=== PATIENT | male | born 1950 | race African-American/Black ===

== ENCOUNTER → 2017-03-12 | Outpatient (CLI) | payer OTHER ==
[2016-07-20 15:18] VITALS: BP 133/71
[~2017-03-12] MED LIST: ATOR20TA PO; ATOR40TA PO; HYDR-971 PO; LEFL20TA PO; METO100T11 PO; METO25TA2 PO; TAMS0.4C97 PO; WARF3TAB54 PO; WARF5TAB7 PO
[2017-03-14 07:14] LABS: HEP B SURFACE ABDY Non Reactive (.)
== END | disposition home or self-care (01) ==
LOC: LAB 14:13
PROVIDERS: ATTEND Internal Medicine Rheumatology
DX: M05.70 Rheumatoid arthritis with rheumatoid factor of unspecified site without organ or systems involvement (principal)
CPT/HCPCS: 36415; 86481; 86705; 86706; 87340

== ENCOUNTER 2017-04-04 13:01 | Emergency (ER) | payer OTHER ==
[~2017-04-04] VITALS: Ht 182.9 cm; Wt 117.9 kg
[2017-04-04 13:36] VITALS: BP 125/62
--- NOTE | 2017-04-04 13:42 | PHYS DOC ---
General Chief Complaint: EYE PROBLEMS Stated Complaint: EYE PROBLEMS Time Seen by MD: 13:31 Source: patient Exam Limitations: no limitations Problems: History of Present Illness Initial Comments Patient is a 66-year-old male who comes to the ED complaining of pink eye. Patient states that for the past several days he's had nonspecific nasal congestion and drainage. Last evening he noticed his right eye was red and itchy and he began to scratch it. This morning he awoke with his right eye matted shut with yellow green discharge. He says his vision is slightly blurry and is I keeps draining he denies trauma he does not work contacts he has no eye pain or vision impairment and denies foreign body sensation. No pre-arrival treatment patient is normally healthy Timing/Duration: yesterday Severity: moderate Location: eye (R) Prearrival Treatment: no prearrival treatment Modifying Factors: improves with other Associated Symptoms: nasal congestion/drainage, other Allergies: Coded Allergies: Penicillins (Unverified Allergy, Unknown, 04/14/15) levofloxacin (Unverified Allergy, Unknown, 04/14/15) Past Medical History Medical History: hypertension (hyperlipidemia) Surgical History: noncontributory, other Social History Smoker: non-smoker Alcohol: none Drugs: none Constitutional: denies chills, denies fever, denies malaise Eyes: see HPI Ears: denies dizziness, denies pain, denies tinnitus Nose: congestion, denies epistaxis, denies pain Throat: denies pain, denies swelling, denies neck stiffness Respiratory: cough, denies shortness of breath, denies wheezing Cardiovascular: denies chest pain, denies palpitations, denies syncope Gastrointestinal: denies abdominal pain, denies nausea, denies vomiting Neurological: denies headache, denies numbness, denies paresthesia Physical Exam General Appearance: WD/WN, no apparent distress Eyes: right eye other (right eye injected with yellow discharge), left eye normal inspection, bilateral eye PERRL, bilateral eye EOMI Nose: normal inspection Mouth/Throat: normal mouth inspection, pharynx normal Neck: non-tender, supple Cardiovascular/Respiratory: normal peripheral pulses, normal breath sounds, no respiratory distress 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 Prescription: Polytrim ophthalmic drops. Follow-up with your doctor next week for recheck. Return to the ED with new or changing symptoms LEONELA RUFFIN DO Apr 04, 2017 13:42
== END 2017-04-04 13:50 | disposition home or self-care (01) ==
LOC: ER 13:01
DX: H10.9 Unspecified conjunctivitis (principal); E78.5 Hyperlipidemia, unspecified; I10 Essential (primary) hypertension; Z88.0 Allergy status to penicillin; Z88.1 Allergy status to other antibiotic agents
CPT/HCPCS: 99283

== ENCOUNTER → 2018-03-25 | Outpatient (CLI) | payer OTHER ==
[~2018-03-25] MED LIST changes: +METO-247 PO; -METO100T11 PO; +WARF-31 PO; -WARF5TAB7 PO
[2018-03-25 08:37] LABS: ALBUMIN 3.3 g/dL (3.4-5.0); ALBUMIN/GLOBULIN RATIO 0.9 (1.0-1.7); CREATININE 1.4 mg/dL (0.7-1.3); GFR 61.4; POTASSIUM 4.3 mmol/L (3.5-5.1); TOTAL BILIRUBIN 0.4 mg/dL (0.2-1.0); TOTAL PROTEIN 6.9 g/dL (6.4-8.2)
== END | disposition home or self-care (01) ==
LOC: LAB 07:59
PROVIDERS: ATTEND Internal Medicine Interventional Cardiology
DX: I10 Essential (primary) hypertension (principal); E78.5 Hyperlipidemia, unspecified
CPT/HCPCS: 36415; 80053; 80061

== ENCOUNTER 2018-08-08 03:37 | Emergency (ER) | payer OTHER ==
[~2018-08-08] VITALS: Ht 182.9 cm; Wt 112.5 kg
[2018-08-08] MEDS ORDERED: MORPHINE SULFATE 4 MG/ML DISP.SYRIN. ONE (04:06)
[2018-08-08] MEDS ORDERED: ONDANSETRON PF 4 MG/2 ML VIAL. ONE (04:06)
[2018-08-08] MEDS ORDERED: IV NORMAL SALINE 1,000ML 1,000 ML IV SCH (04:08)
--- NOTE | 2018-08-08 04:12 | PHYS DOC ---
IGNACIO MAURER MD 08/08/18 0412: Adult General Chief Complaint Chief Complaint abd pain HPI HPI 67 years old gentleman presented emergency department with right sided abdominal pain described as a sharp constant pain associated with nausea no vomiting no urgency no frequency no hematuria. Pain is constant Review of Systems Review of Systems Constitutional: Denies fever or chills [] Eyes: Denies change in visual acuity, redness, or eye pain [] HENT: Denies nasal congestion or sore throat [] Respiratory: Denies cough or shortness of breath [] Cardiovascular: No additional information not addressed in HPI [] GI: Denies vomiting, bloody stools or diarrhea [] : Denies dysuria or hematuria [] Musculoskeletal: Denies back pain or joint pain [] Integument: Denies rash or skin lesions [] Neurologic: Denies headache, focal weakness or sensory changes [] Endocrine: Denies polyuria or polydipsia [] All other systems were reviewed and found to be within normal limits, except as documented in this note. Current Medications Current Medications Current Medications Medications (Trade) Dose Ordered Sig/Concetta Start Time Stop Time Status Last Admin Dose Admin Info (Do NOT chart on this entry -- for MONITORING) 1 each PRN DAILY PRN 08/08/18 04:15 08/10/18 04:14 Iohexol (Omnipaque 300 Mg/ml) 75 ml 1X ONCE 08/08/18 04:30 08/08/18 04:31 DC 08/08/18 04:54 75 ML Morphine Sulfate (Morphine 4mg Syringe) 4 mg PRN Q15MIN PRN 08/08/18 04:15 08/09/18 04:14 Ondansetron HCl (Zofran) 4 mg 1X ONCE 08/08/18 04:15 08/08/18 04:17 DC Sodium Chloride 1,000 ml @ 1,000 mls/hr Q1H 08/08/18 04:08 08/08/18 05:07 DC 08/08/18 04:14 1,000 MLS/HR Allergies Allergies Allergies Coded Allergies Type Severity Reaction Last Updated Verified Penicillins Allergy Unknown 08/08/18 No levofloxacin Allergy Unknown 04/14/15 No Physical Exam Physical Exam Constitutional: Well developed, well nourished, no acute distress, non-toxic appearance. [] HENT: Normocephalic, atraumatic, bilateral external ears normal, oropharynx moist, no oral exudates, nose normal. [] Eyes: PERRLA, EOMI, conjunctiva normal, no discharge. [] Neck: Normal range of motion, no tenderness, supple, no stridor. [] Cardiovascular:Heart rate regular rhythm, no murmur [] Lungs & Thorax: Bilateral breath sounds clear to auscultation [] Abdomen: Bowel sounds normal, soft, , no masses, no pulsatile masses. [] Skin: Warm, dry, no erythema, no rash. [] Back: No tenderness, no CVA tenderness. [] Extremities: No tenderness, no cyanosis, no clubbing, ROM intact, no edema. [] Neurologic: Alert and oriented X 3, normal motor function, normal sensory function, no focal deficits noted. [] Psychologic: Affect normal, judgement normal, mood normal. [] Current Patient Data Vital Signs Vital Signs Date Time Temp Pulse Resp B/P (MAP) Pulse Ox O2 Delivery O2 Flow Rate FiO2 08/08/18 04:17 84 22 131/77 (95) 99 Room Air 08/08/18 03:43 97.7 Lab Results Laboratory Tests Test 08/08/18 03:44 08/08/18 05:07 White Blood Count 11.0 x10^3/uL (4.0-11.0) Red Blood Count 4.42 x10^6/uL (4.30-5.70) Hemoglobin 11.7 g/dL (13.0-17.5) L Hematocrit 34.9 % (39.0-53.0) L Mean Corpuscular Volume 79 fL (79-100) Mean Corpuscular Hemoglobin 27 pg (25-35) Mean Corpuscular Hemoglobin Concent 34 g/dL (31-37) Red Cell Distribution Width 16.1 % (11.5-14.5) H Platelet Count 238 x10^3/uL (140-400) Neutrophils (%) (Auto) 58 % (31-73) Lymphocytes (%) (Auto) 30 % (24-48) Monocytes (%) (Auto) 10 % (0-9) H Eosinophils (%) (Auto) 2 % (0-3) Basophils (%) (Auto) 0 % (0-3) Neutrophils # (Auto) 6.4 x10^3uL (1.8-7.7) Lymphocytes # (Auto) 3.3 x10^3/uL (1.0-4.8) Monocytes # (Auto) 1.1 x10^3/uL (0.0-1.1) Eosinophils # (Auto) 0.2 x10^3/uL (0.0-0.7) Basophils # (Auto) 0.0 x10^3/uL (0.0-0.2) Sodium Level 138 mmol/L (136-145) Potassium Level 3.8 mmol/L (3.5-5.1) Chloride Level 103 mmol/L (98-107) Carbon Dioxide Level 23 mmol/L (21-32) Anion Gap 12 (6-14) Blood Urea Nitrogen 14 mg/dL (8-26) Creatinine 1.3 mg/dL (0.7-1.3) Estimated GFR (Cockcroft-Gault) 66.8 BUN/Creatinine Ratio 11 (6-20) Glucose Level 133 mg/dL (70-99) H Calcium Level 8.1 mg/dL (8.5-10.1) L Total Bilirubin 0.5 mg/dL (0.2-1.0) Aspartate Amino Transferase (AST) 72 U/L (15-37) H Alanine Aminotransferase (ALT) 112 U/L (16-63) H Alkaline Phosphatase 167 U/L (46-116) H Troponin I Quantitative < 0.017 ng/mL (0-0.055) Total Protein 7.2 g/dL (6.4-8.2) Albumin 2.7 g/dL (3.4-5.0) L Albumin/Globulin Ratio 0.6 (1.0-1.7) L Lipase 60 U/L (73-393) L Urine Collection Type Unknown Urine Color Yellow Urine Clarity Clear Urine pH 5.0 Urine Specific Braddock 1.020 Urine Protein 30 mg/dl (NEG-TRACE) Urine Glucose (UA) Neg mg/dL (NEG) Urine Ketones (Stick) Neg mg/dL (NEG) Urine Blood Neg (NEG) Urine Nitrite Neg (NEG) Urine Bilirubin Neg (NEG) Urine Urobilinogen Dipstick 0.2 mg/dL (0.2 mg/dL) Urine Leukocyte Esterase Neg (NEG) Urine RBC 0 /HPF (0-2) Urine WBC Rare /HPF (0-4) Urine Squamous Epithelial Cells Occ /LPF Urine Bacteria 0 /HPF (0-FEW) EKG EKG [] Radiology/Procedures Radiology/Procedures [] Course & Med Decision Making Course & Med Decision Making Pertinent Labs and Imaging studies reviewed. (See chart for details) [] Final Impression Final Impression [] Problems: (1) Abdominal pain Qualifiers: Qualified Codes: R10.31 - Right lower quadrant pain Dragon Disclaimer Dragon Disclaimer This electronic medical record was generated, in whole or in part, using a voice recognition dictation system. MIGUEL AVILES 08/08/18 0610: Adult General Radiology/Procedures Impressions: CT abdomen and pelvis with contrast: Reason for examination: Upper abdominal pain with nausea, vomiting and constipation. Aneurysm/stent placement one week ago at . Comparison is made to previous CT chest dated 09/20/2015 and previous chest, abdomen and pelvis CT dated 04/14/2015. Helical images were obtained through the abdomen pelvis with intravenous administration of 75 cc Omnipaque 300. Reconstruction was performed in sagittal and coronal plane. Exposure: One or more of the following individualized dose reduction techniques were utilized for this examination: 1. Automated exposure control 2. Adjustment of the mA and/or kV according to patient size 3. Use of iterative reconstruction technique. There is some dependent atelectasis at the lung bases. The heart size is normal with no pericardial effusion seen. No focal abnormality seen at the liver, gallbladder, spleen, adrenal glands or pancreas. No abnormality seen at the inferior vena cava. The abdominal aorta shows evidence of an aortic dissection with a stent present above the level of the celiac axis the dissection extends to the aortic bifurcation. There is aneurysmal dilatation of the dissected aorta which is tortuous but appears to measure at least 6.5 cm in greatest diameter at the level of the aortic hiatus. This is larger than on previous exam. There appears to be thrombus in the false lumen at the level of the aortic stent. Distal to the stent, there appears be blood flow in both the true and false lumen. No abnormality is seen at the stomach or small intestinal tract. There is diverticulosis in the sigmoid colon but no evidence of diverticulitis. No abnormality seen at the appendix. The kidneys show no renal masses, renal calculi, hydronephrosis or evidence of obstructive uropathy. No abnormality seen at the bladder, prostate gland or seminal vesicles. IMPRESSION: Aortic aneurysm or dissection which appears to be greater diameter than on previous examination at the level of the aortic hiatus measuring 6.5 cm in greatest diameter. Aortic stent is present in the abdominal aorta proximal to the celiac axis. There is thrombus in the false lumen at the level of the aortic stent. There is flow in both the true and false lumens below the level of the stent and the dissection extends down to the bifurcation. No other focal abnormality seen in the abdomen or pelvis. Electronically signed by: Love Canas MD (08/08/2018 5:54 AM) [facility] DICTATED AND SIGNED BY: LOVE CANAS MD DATE: 08/08/18 0537 CC: IGNACIO MARUER MD; AIDE PORTILLO MD Course & Med Decision Making Course & Med Decision Making The patient has an aortic dissection as well as his aneurysm. He recently had an aortic stent placed. I am unsure if these dissection findings are new or if this was existing prior to his stent. It could represent cause of his pain. There is no abnormality found in the right upper quadrant related to the gallbladder and liver. His liver enzymes are elevated but only about 2x normal. I discussed the patient's case with his vascular surgeon Dr. Stephane Ribera at [facility]. He informed me that the aneurysm was not a new finding. He will personally review the scan and contact the patient for further follow-up. He is comfortable at this time with discharging the patient if he has no other reasons for admission. The patient's liver and gallbladder on CT were unremarkable. He does have some stool retention in this right upper quadrant. The surgeon told me they had difficulty with the patient having constipation while he was at their facility. I will encourage the patient to consider more aggressive bowel regimen for the next day or 2 and then close monitoring of his constipation in the future. I reviewed this plan with the patient and he does feel comfortable going home. He will follow-up with his surgeon and PCP as needed. He is stable for discharge at this time. IGNACIO MAURER MD Aug 08, 2018 04:12 MIGUEL AVILES DO Aug 08, 2018 06:10
[2018-08-08] MEDS ORDERED: CONTRAST GIVEN MC PRN (04:15)
[2018-08-08] MEDS ORDERED: MORPHINE SULFATE 4 MG/ML DISP.SYRIN. IV ONE (04:15)
[2018-08-08] MEDS ORDERED: MORPHINE SULFATE 4 MG/ML DISP.SYRIN. IV/SQ PRN (04:15)
[2018-08-08] MEDS ORDERED: ONDANSETRON PF 4 MG/2 ML VIAL. IV ONE ×2 (04:15)
[2018-08-08 04:30] LABS: BASO % 0 % (0-3); EOS # 0.2 x10^3/uL (0.0-0.7); EOS % 2 % (0-3); HEMATOCRIT 34.9 % (39.0-53.0); HEMOGLOBIN 11.7 g/dL (13.0-17.5); LYMPH # 3.3 x10^3/uL (1.0-4.8); LYMPH % 30 % (24-48); MEAN CORPUSCULAR HEMOGLOBIN 27 pg (25-35); MEAN CORPUSCULAR HGB CONC 34 g/dL (31-37); MEAN CORPUSCULAR VOLUME 79 fL (79-100); MONO # 1.1 x10^3/uL (0.0-1.1); MONO % 10 % (0-9); NEUT # 6.4 x10^3uL (1.8-7.7); NEUT % 58 % (31-73); PLATELET COUNT 238 x10^3/uL (140-400); RED BLOOD COUNT 4.42 x10^6/uL (4.30-5.70); RED CELL DISTRIBUTION WIDTH 16.1 % (11.5-14.5)
[2018-08-08] MEDS ORDERED: IOHEXOL 300 MG/ML 75 ML VIAL. IV ONE (04:30)
[2018-08-08 04:44] LABS: ALBUMIN 2.7 g/dL (3.4-5.0); ALBUMIN/GLOBULIN RATIO 0.6 (1.0-1.7); CALCIUM 8.1 mg/dL (8.5-10.1); CREATININE 1.3 mg/dL (0.7-1.3); GFR 66.8; POTASSIUM 3.8 mmol/L (3.5-5.1); TOTAL BILIRUBIN 0.5 mg/dL (0.2-1.0); TOTAL PROTEIN 7.2 g/dL (6.4-8.2)
[2018-08-08 05:50] LABS: BACTERIA,URINE 0 /HPF (0-FEW); BILIRUBIN,URINE NEG (NEG); CLARITY,URINE CLEAR; COLOR,URINE YELLOW; GLUCOSE,URINE NEG (NEG); NITRITE,URINE NEG (NEG); RBC,URINE 0 /HPF (0-2); SQUAMOUS EPITHELIAL CELL,UR OCC /LPF; UROBILINOGEN,URINE 0.2 mg/dL (0.2 mg/dL); WBC,URINE RARE /HPF (0-4)
--- NOTE | 2018-08-08 05:58 | RAD ---
CT abdomen and pelvis with contrast: Reason for examination: Upper abdominal pain with nausea, vomiting and constipation. Aneurysm/stent placement one week ago at . Comparison is made to previous CT chest dated 09/20/2015 and previous chest, abdomen and pelvis CT dated 04/14/2015. Helical images were obtained through the abdomen pelvis with intravenous administration of 75 cc Omnipaque 300. Reconstruction was performed in sagittal and coronal plane. Exposure: One or more of the following individualized dose reduction techniques were utilized for this examination: 1. Automated exposure control 2. Adjustment of the mA and/or kV according to patient size 3. Use of iterative reconstruction technique. There is some dependent atelectasis at the lung bases. The heart size is normal with no pericardial effusion seen. No focal abnormality seen at the liver, gallbladder, spleen, adrenal glands or pancreas. No abnormality seen at the inferior vena cava. The abdominal aorta shows evidence of an aortic dissection with a stent present above the level of the celiac axis the dissection extends to the aortic bifurcation. There is aneurysmal dilatation of the dissected aorta which is tortuous but appears to measure at least 6.5 cm in greatest diameter at the level of the aortic hiatus. This is larger than on previous exam. There appears to be thrombus in the false lumen at the level of the aortic stent. Distal to the stent, there appears be blood flow in both the true and false lumen. No abnormality is seen at the stomach or small intestinal tract. There is diverticulosis in the sigmoid colon but no evidence of diverticulitis. No abnormality seen at the appendix. The kidneys show no renal masses, renal calculi, hydronephrosis or evidence of obstructive uropathy. No abnormality seen at the bladder, prostate gland or seminal vesicles. IMPRESSION: Aortic aneurysm or dissection which appears to be greater diameter than on previous examination at the level of the aortic hiatus measuring 6.5 cm in greatest diameter. Aortic stent is present in the abdominal aorta proximal to the celiac axis. There is thrombus in the false lumen at the level of the aortic stent. There is flow in both the true and false lumens below the level of the stent and the dissection extends down to the bifurcation. No other focal abnormality seen in the abdomen or pelvis. Electronically signed by: Love Lemus MD (08/08/2018 5:54 AM) [facility]
--- NOTE | 2018-08-08 06:00 | EKG ---
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
[2018-08-08 07:12] VITALS: BP 116/64
== END 2018-08-08 07:40 | disposition home or self-care (01) ==
LOC: ER 03:37
DX: I71.4 Abdominal aortic aneurysm, without rupture (principal); I71.02 Dissection of abdominal aorta; K59.00 Constipation, unspecified; R11.2 Nausea with vomiting, unspecified; Z88.0 Allergy status to penicillin; Z88.1 Allergy status to other antibiotic agents
CPT/HCPCS: 36415; 74177; 80053; 81001; 83690; 84484; 85025; 93005; 96361; 96374; 96375; 99285; J2270; J2405; Q9967; J7030

== ENCOUNTER → 2018-08-21 | Outpatient (CLI) | payer OTHER ==
[2018-08-08 07:12] VITALS: BP 116/64
--- NOTE | 2018-08-21 18:11 | RAD ---
KUB, 08/21/2018: HISTORY: Left upper quadrant pain The abdominal gas pattern is unremarkable. There is no evidence of organomegaly. The lower end of an aortic stent is evident in the upper abdomen. Mild degenerative changes are present in the spine and at both hips. IMPRESSION: No acute abdominal abnormality is detected. Electronically signed by: Jameel Lacey MD (08/21/2018 6:08 PM) [facility]
== END | disposition home or self-care (01) ==
LOC: LAB 13:10
DX: R10.12 Left upper quadrant pain (principal); R19.7 Diarrhea, unspecified; R74.8 Abnormal levels of other serum enzymes; I71.6 Thoracoabdominal aortic aneurysm, without rupture; M47.896 Other spondylosis, lumbar region; M16.0 Bilateral primary osteoarthritis of hip
CPT/HCPCS: 74018; 82728; 83540; 83550

== ENCOUNTER → 2019-02-05 | Outpatient (CLI) | payer OTHER ==
[~2019-02-05] MED LIST changes: +HYDR-3165 PO; -HYDR-971 PO
== END | disposition home or self-care (01) ==
LOC: LAB 14:35
PROVIDERS: ATTEND Family Medicine
DX: Z79.01 Long term (current) use of anticoagulants (principal)
CPT/HCPCS: 36415; 85610

== ENCOUNTER → 2019-02-05 | Outpatient (CLI) | payer OTHER ==
[2019-02-05 15:20] LABS: BASO % 0 % (0-3); EOS # 0.1 x10^3/uL (0.0-0.7); EOS % 1 % (0-3); HEMATOCRIT 40.7 % (39.0-53.0); HEMOGLOBIN 13.3 g/dL (13.0-17.5); LYMPH # 3.2 x10^3/uL (1.0-4.8); LYMPH % 36 % (24-48); MEAN CORPUSCULAR HEMOGLOBIN 25 pg (25-35); MEAN CORPUSCULAR HGB CONC 33 g/dL (31-37); MEAN CORPUSCULAR VOLUME 77 fL (79-100); MONO # 0.7 x10^3/uL (0.0-1.1); MONO % 8 % (0-9); NEUT # 4.9 x10^3uL (1.8-7.7); NEUT % 55 % (31-73); PLATELET COUNT 161 x10^3/uL (140-400); RED BLOOD COUNT 5.29 x10^6/uL (4.30-5.70); RED CELL DISTRIBUTION WIDTH 20.1 % (11.5-14.5); WHITE BLOOD COUNT 8.9 x10^3/uL (4.0-11.0)
[2019-02-05 15:29] LABS: ALBUMIN 3.5 g/dL (3.4-5.0); ALBUMIN/GLOBULIN RATIO 0.8 (1.0-1.7); CALCIUM 8.9 mg/dL (8.5-10.1); CREATININE 1.1 mg/dL (0.7-1.3); GFR 80.8; POTASSIUM 4.3 mmol/L (3.5-5.1); TOTAL BILIRUBIN 0.3 mg/dL (0.2-1.0); TOTAL PROTEIN 8.1 g/dL (6.4-8.2)
[2019-02-05 15:35] LABS: PLT ESTIMATE ADEQUATE (ADEQUATE)
[2019-02-05 15:37] LABS: ANISOCYTOSIS MOD; BIZZARE CELLS FEW; SCHISTOCYTES FEW; TEAR DROP CELLS FEW
[2019-02-05 15:38] LABS: OVALOCYTES FEW; POIKILOCYTOSIS MOD
== END | disposition home or self-care (01) ==
LOC: LAB 14:43
PROVIDERS: ATTEND Internal Medicine Rheumatology
DX: M05.79 Rheumatoid arthritis with rheumatoid factor of multiple sites without organ or systems involvement (principal); M15.9 Polyosteoarthritis, unspecified
CPT/HCPCS: 36415; 80053; 85025

== ENCOUNTER → 2019-08-08 | Outpatient (CLI) | payer OTHER ==
[2019-08-08 12:50] LABS: BASO % 0 % (0-3); EOS # 0.1 x10^3/uL (0.0-0.7); EOS % 1 % (0-3); HEMATOCRIT 43.7 % (39.0-53.0); HEMOGLOBIN 14.1 g/dL (13.0-17.5); LYMPH # 2.5 x10^3/uL (1.0-4.8); LYMPH % 29 % (24-48); MEAN CORPUSCULAR HEMOGLOBIN 26 pg (25-35); MEAN CORPUSCULAR HGB CONC 32 g/dL (31-37); MEAN CORPUSCULAR VOLUME 82 fL (79-100); MONO # 0.7 x10^3/uL (0.0-1.1); MONO % 8 % (0-9); NEUT # 5.3 x10^3uL (1.8-7.7); NEUT % 61 % (31-73); PLATELET COUNT 132 x10^3/uL (140-400); RED BLOOD COUNT 5.33 x10^6/uL (4.30-5.70); RED CELL DISTRIBUTION WIDTH 17.6 % (11.5-14.5); WHITE BLOOD COUNT 8.7 x10^3/uL (4.0-11.0)
[2019-08-08 13:36] LABS: ALBUMIN 3.7 g/dL (3.4-5.0); ALBUMIN/GLOBULIN RATIO 0.9 (1.0-1.7); CALCIUM 8.6 mg/dL (8.5-10.1); GFR 90.2; POTASSIUM 4.2 mmol/L (3.5-5.1); TOTAL BILIRUBIN 0.5 mg/dL (0.2-1.0); TOTAL PROTEIN 7.9 g/dL (6.4-8.2)
--- NOTE | 2019-08-08 14:27 | RAD ---
SHOULDER 2+V RIGHT History: Right shoulder pain for 3 weeks Comparison: None. Findings: 3 views of the right shoulder are submitted. No acute fracture or dislocation is identified. There is narrowing of the acromiohumeral distance. There is degenerative change of the acromioclavicular joint. Impression: 1. There is degenerative change right acromioclavicular joint. No acute osseous abnormality is identified. Electronically signed by: Roberto Carlos Hall MD (08/08/2019 2:24 PM) [facility]
[2019-08-09 02:07] LABS: HEMOGLOBIN A1C 6.1 % (4.8-5.6)
== END | disposition home or self-care (01) ==
LOC: RAD 10:43
PROVIDERS: ATTEND Family Medicine
DX: M19.011 Primary osteoarthritis, right shoulder (principal); E78.2 Mixed hyperlipidemia; I11.0 Hypertensive heart disease with heart failure; I50.9 Heart failure, unspecified; Z79.899 Other long term (current) drug therapy; Z88.0 Allergy status to penicillin
CPT/HCPCS: 36415; 73030; 80053; 80061; 83036; 85025

== ENCOUNTER → 2019-10-26 | Outpatient (CLI) | payer OTHER | END | disposition home or self-care (01) | LOC: LAB 08:53 | PROVIDERS: ATTEND Urology | DX: C61 Malignant neoplasm of prostate (principal) | CPT/HCPCS: 84153; G0103 ==

== ENCOUNTER → 2019-12-23 | Outpatient (CLI) | payer MEDICARE ==
[2019-12-23 09:36] LABS: CALCIUM 8.1 mg/dL (8.5-10.1); CREATININE 1.2 mg/dL (0.7-1.3); GFR 72.9; MAGNESIUM 2.1 mg/dL (1.8-2.4); POTASSIUM 4.1 mmol/L (3.5-5.1)
== END | disposition home or self-care (01) ==
LOC: LAB 08:10
PROVIDERS: ATTEND Internal Medicine Interventional Cardiology
DX: I10 Essential (primary) hypertension (principal); E78.5 Hyperlipidemia, unspecified
CPT/HCPCS: 36415; 80048; 83735

== ENCOUNTER 2020-06-28 16:04 | Emergency (ER) | payer MEDICARE ==
[~2020-06-28] VITALS: Ht 182.9 cm; Wt 117.2 kg
--- NOTE | 2020-06-28 16:19 | PHYS DOC ---
Past History Past Medical History: Arthritis, Cancer, Diverticulitis, High Cholesterol, Hypertension Past Surgical History: Tonsillectomy Alcohol Use: Occasionally Drug Use: None Adult General Chief Complaint Chief Complaint: SHORTNESS OF BREATH HPI HPI Patient is a 69-year-old male who presents for shortness of breath. Patient r eports having PET scan for adrenal nodule performed greater than 1 week ago, at that time there were concerning lung opacities prompting him to get tested for COVID, he tested positive. This test was performed 9 days ago and ever since, patient reports classic COVID-19 symptoms such as fever, chills, malaise, nausea, decreased appetite, and worsening shortness of breath. Local health department has been calling patient daily and reported today he sounded worse than usual and so, they advised he seek care at his local ER for evaluation. On arrival today, patient short of breath and febrile. Denies any productive cough, syncope, headache, lightheadedness, chest pain, abdominal pain, urinary symptoms, changes in baseline urination bowel function. He has been taking all daily medications as scheduled, he has been compliant with supportive care measures at home as advised by his PCP who diagnosed patient with COVID-19 Review of Systems Review of Systems Fourteen body systems of review of systems have been reviewed. See HPI for pertinent positives and negative responses, other duncan all other systems are negative, non-pertinent or non-contributory Allergies Allergies Allergies Coded Allergies Type Severity Reaction Last Updated Verified Penicillins Allergy Unknown 08/08/18 No levofloxacin Allergy Unknown 04/14/15 No Physical Exam Physical Exam Constitutional: Well developed, well nourished, febrile, ill-appearing, mild respiratory distress distress. HENT: Normocephalic, atraumatic, bilateral external ears normal, oropharynx moist, no oral exudates, nose normal. Eyes: PERRLA, EOMI, conjunctiva normal, no discharge. Neck: Normal range of motion, no tenderness, supple, no stridor. Cardiovascular: Heart rate tachycardic, sinus rhythm, no murmurs rubs or gallops Lungs & Thorax: Bilateral breath sounds coarse, no obvious focal consolidations, no rales, diffuse rhonchi bilaterally. No obvious signs of impending respiratory failure, mild increased work of breathing, tachypneic, accessory muscle usage noted and scalenes Abdomen: Bowel sounds normal, soft, no tenderness, no masses, no pulsatile masses. Nonsurgical abdomen, no peritoneal signs Skin: Warm, dry, no erythema, no rash. Back: No tenderness, no CVA tenderness. Extremities: No tenderness, no cyanosis, no clubbing, ROM intact, no edema. Neurologic: Alert and oriented X 3, grossly normal motor & sensory function, no focal deficits noted. Psychologic: Affect normal, judgement normal, depressed mood EKG EKG EKG ordered and interpreted by myself at 1644 hrs. as sinus tachycardia at 102 bpm, NC 208 otherwise remaining intervals unremarkable, no axis deviation, no STEMI. EKG compared to prior study August 08, 2018, study today shows nonspecific T wave abnormalities in leads II and aVF, new T wave inversions in leads V3, V4, V5, and V6 present today Radiology/Procedures Radiology/Procedures PROCEDURE: PORTABLE CHEST 1V EXAM: PORTABLE CHEST 1V INDICATION: Reason: shob, COVD+ / Spl. Instructions: / History: . TECHNIQUE: Single view COMPARISON: 09/20/2015 chest x-ray FINDINGS: The heart size is upper normal. Great vessels show interval aortic stent grafting of the descending thoracic aorta There is no hilar or mediastinal mass. Lungs show interval development of patchy airspace opacities peripherally, best appreciated the mid left lung. There is no pleural effusion or pneumothorax. There are no significant osseous abnormalities. IMPRESSION: Patchy peripheral airspace opacities, left greater than right compatible with atypical pneumonia. Electronically signed by: Jamar Craig MD (06/28/2020 5:10 PM) [id number] Course & Med Decision Making Course & Med Decision Making Patient seen on immediate ER arrival via POV Airway patent, mild respiratory distress, febrile, tachycardic, and tachypneic on arrival. Patient maintaining saturations greater than 95% on room air Comprehensive history and physical exam performed, subsequent diagnostic studies ordered X2 large-bore IVs obtained, 1 L IV normal saline and 1 g p.o. Tylenol and 40 mEq KDur administered. Decision made to start 2 g IV Rocephin, 500 mg IV azithromycin, and 6 mg p.o. dexamethasone for known COVID positive patient ER course and diagnostic studies reviewed and discussed with patient at length, although patient stabilized, patient high risk for poor prognosis if not admitted for continued medical observation and care. I recommended admission, he is amenable On-call hospitalist, Dr. Rene, called in case discussed. Joint decision to transfer to [facility] given patient's presenting signs and symptoms, diagnosis, and comorbidities. He would benefit from pulmonology and ID consultations Transfer to [facility] discussed with patient, he is agreeable. All questions and concerns addressed prior to ER departure via EMS for admission to [facility] for continued medical care Dragon Disclaimer Dragon Disclaimer This electronic medical record was generated, in whole or in part, using a voice recognition dictation system. The HEART Score for CP Pts HEART Score for Chest Pain: HEART Score for Chest Pain Response (Comments) Value History Slighlty/Non-Suspicious 0 ECG Nonspecific Repolarizatio 1 Age > 65 2 Risk Factors >3 Risk Factors or Hx CAD 2 Troponin < Normal Limit 0 Total 5 Risk Factors: Risk Factors: DM, Current or recent (<one month) smoker, HTN, HLP, family history of CAD, obesity. Risk Scores: Score 0 - 3: 2.5% MACE over next 6 weeks - Discharge Home Score 4 - 6: 20.3% MACE over next 6 weeks - Admit for Clinical Observation Score 7 - 10: 72.7% MACE over next 6 weeks - Early Invasive Strategies Departure Departure: Impression: Primary Impression: COVID-19 Additional Impressions: Sepsis Warfarin anticoagulation Full code status Prostate cancer History of deep venous thrombosis (DVT) of distal vein of left lower extremity Hypokalemia Supratherapeutic INR Disposition: 05 TRANSFER OTHER ([facility]) Admitting Physician: Manuel Rene Condition: STABLE Referrals: AIDE PORTILLO MD (PCP) Justification of Admission: Justification of Admission: Justification of Admission Dx: Yes (Numerous serious comorbidities, COVID-19 positive, septic) Sepsis: Tachypnea Problem Qualifiers VIRGIL JLALOH DO Jun 28, 2020 16:19
[2020-06-28] MEDS ORDERED: IV NORMAL SALINE 1,000ML 1,000 ML IV SCH (16:20)
[2020-06-28] MEDS ORDERED: ACETAMINOPHEN 500 MG TABLET PO ONE (16:30)
[2020-06-28] MEDS ORDERED: cefTRIAXone IM 1 GM VIAL IM ONE (16:39)
[2020-06-28] MEDS ORDERED: IV NORMAL SALINE 250ML 250 ML ONE (16:39)
[2020-06-28] MEDS ORDERED: AZITHROMYCIN 500 MG VIAL. IV ONE (16:39)
[2020-06-28] MEDS ORDERED: IV NORMAL SALINE 100ML 100 ML ONE (16:40)
[2020-06-28] MEDS ORDERED: DEXAMETHASONE 4 MG TABLET PO ONE (16:45)
[2020-06-28] MEDS ORDERED: AZITHROMYCIN 500 MG in IV NORMAL SALINE 250ML 250 ML IV ONE (16:45)
[2020-06-28 16:59] LABS: BASO % 0 % (0-3); EOS % 0 % (0-3); HEMATOCRIT 37.5 % (39.0-53.0); HEMOGLOBIN 12.5 g/dL (13.0-17.5); LYMPH # 1.5 x10^3/uL (1.0-4.8); LYMPH % 13 % (24-48); MEAN CORPUSCULAR HEMOGLOBIN 25 pg (25-35); MEAN CORPUSCULAR HGB CONC 34 g/dL (31-37); MEAN CORPUSCULAR VOLUME 76 fL (79-100); MONO # 0.9 x10^3/uL (0.0-1.1); MONO % 8 % (0-9); NEUT # 8.8 x10^3uL (1.8-7.7); NEUT % 78 % (31-73); PLATELET COUNT 158 x10^3/uL (140-400); RED BLOOD COUNT 4.93 x10^6/uL (4.30-5.70); RED CELL DISTRIBUTION WIDTH 17.8 % (11.5-14.5); WHITE BLOOD COUNT 11.2 x10^3/uL (4.0-11.0)
[2020-06-28 17:10] LABS: CREATININE 1.6 mg/dL (0.7-1.3); GFR 52.3; POTASSIUM 3.2 mmol/L (3.5-5.1)
[2020-06-28 17:12] LABS: C REACTIVE PROTEIN 128.3 mg/L (0-3.3)
--- NOTE | 2020-06-28 17:13 | RAD ---
EXAM: PORTABLE CHEST 1V INDICATION: Reason: shob, COVD+ / Spl. Instructions: / History: . TECHNIQUE: Single view COMPARISON: 09/20/2015 chest x-ray FINDINGS: The heart size is upper normal. Great vessels show interval aortic stent grafting of the descending thoracic aorta There is no hilar or mediastinal mass. Lungs show interval development of patchy airspace opacities peripherally, best appreciated the mid left lung. There is no pleural effusion or pneumothorax. There are no significant osseous abnormalities. IMPRESSION: Patchy peripheral airspace opacities, left greater than right compatible with atypical pneumonia. Electronically signed by: Jamar Craig MD (06/28/2020 5:10 PM) [id number]
--- NOTE | 2020-06-28 17:22 | EKG ---
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
[2020-06-28 17:24] LABS: ALBUMIN 2.9 g/dL (3.4-5.0); ALBUMIN/GLOBULIN RATIO 0.5 (1.0-1.7); TOTAL BILIRUBIN 0.5 mg/dL (0.2-1.0); TOTAL PROTEIN 8.3 g/dL (6.4-8.2)
[2020-06-28] MEDS ORDERED: POTASSIUM CHLORIDE 20 MEQ TABLET.ER. PO ONE (17:45)
[2020-06-28 18:30] VITALS: BP 107/45
[2020-06-28 18:31] LABS: BILIRUBIN,URINE NEG (NEG); CLARITY,URINE CLEAR; COLOR,URINE YELLOW; GLUCOSE,URINE NEG (NEG); NITRITE,URINE NEG (NEG); UROBILINOGEN,URINE 0.2 mg/dL (0.2 mg/dL)
[2020-06-28 18:34] LABS: BACTERIA,URINE FEW /HPF (0-FEW); SQUAMOUS EPITHELIAL CELL,UR FEW /LPF
== END 2020-06-28 19:07 | disposition short-term general hospital (02) ==
LOC: ER 16:04
DX: U07.1 COVID-19 (principal); A41.9 Sepsis, unspecified organism; C61 Malignant neoplasm of prostate; E87.6 Hypokalemia; M19.90 Unspecified osteoarthritis, unspecified site; E78.00 Pure hypercholesterolemia, unspecified; I10 Essential (primary) hypertension; Z86.718 Personal history of other venous thrombosis and embolism; Z88.0 Allergy status to penicillin; Z88.1 Allergy status to other antibiotic agents
CPT/HCPCS: 36415; 71045; 80053; 81001; 82550; 82728; 83605; 83615; 83880; 84484; 85025; 85610; 85730; 86140; 87040; 93005; 96361; 96365; 99285; J0456; J0696; J7030; J7050; J8540; 96368; 96375

== ENCOUNTER → 2020-08-08 | Outpatient (CLI) | payer MEDICARE ==
[2020-08-08 11:33] LABS: ALBUMIN 3.5 g/dL (3.4-5.0); ALBUMIN/GLOBULIN RATIO 0.8 (1.0-1.7); CALCIUM 8.8 mg/dL (8.5-10.1); CREATININE 1.2 mg/dL (0.7-1.3); GFR 72.9; POTASSIUM 3.8 mmol/L (3.5-5.1); TOTAL BILIRUBIN 0.4 mg/dL (0.2-1.0); TOTAL PROTEIN 7.8 g/dL (6.4-8.2)
[2020-08-08 11:48] LABS: ANISOCYTOSIS SLIGHT; MICROCYTOSIS SLIGHT; PLT ESTIMATE DECREASED (ADEQUATE); POLYCHROMASIA PRESENT
[2020-08-08 11:49] LABS: OVALOCYTES PRESENT
[2020-08-08 11:56] LABS: BASO % 0 % (0-3); EOS # 0.1 x10^3/uL (0.0-0.7); EOS % 1 % (0-3); HEMATOCRIT 38.3 % (39.0-53.0); HEMOGLOBIN 12.4 g/dL (13.0-17.5); LYMPH # 2.5 x10^3/uL (1.0-4.8); LYMPH % 27 % (24-48); MEAN CORPUSCULAR HEMOGLOBIN 26 pg (25-35); MEAN CORPUSCULAR HGB CONC 32 g/dL (31-37); MEAN CORPUSCULAR VOLUME 80 fL (79-100); MONO % 10 % (0-9); NEUT # 5.7 x10^3uL (1.8-7.7); NEUT % 61 % (31-73); PLATELET COUNT 122 x10^3/uL (140-400); RED BLOOD COUNT 4.79 x10^6/uL (4.30-5.70); RED CELL DISTRIBUTION WIDTH 21.5 % (11.5-14.5); WHITE BLOOD COUNT 9.3 x10^3/uL (4.0-11.0)
== END ==
LOC: LAB 10:21
PROVIDERS: ATTEND Internal Medicine Rheumatology
DX: M15.9 Polyosteoarthritis, unspecified (principal); M07.69 Enteropathic arthropathies, multiple sites; Z79.899 Other long term (current) drug therapy
CPT/HCPCS: 36415; 80053; 85025; 86140

== ENCOUNTER → 2020-11-15 | Outpatient (CLI) | payer MEDICARE ==
[2020-11-15 11:25] LABS: CALCIUM 8.6 mg/dL (8.5-10.1); CREATININE 1.4 mg/dL (0.7-1.3); GFR 60.8; POTASSIUM 3.8 mmol/L (3.5-5.1)
== END ==
LOC: LAB 10:10
PROVIDERS: ATTEND Internal Medicine Interventional Cardiology
DX: I50.30 Unspecified diastolic (congestive) heart failure (principal); E78.5 Hyperlipidemia, unspecified
CPT/HCPCS: 36415; 80048; 83735

== ENCOUNTER → 2021-03-23 | Outpatient (CLI) | payer MEDICARE ==
[2021-03-23 12:25] LABS: ALBUMIN 3.8 g/dL (3.4-5.0); CALCIUM 8.2 mg/dL (8.5-10.1); CREATININE 1.4 mg/dL (0.7-1.3); GFR 60.8; MAGNESIUM 2.3 mg/dL (1.8-2.4); POTASSIUM 3.9 mmol/L (3.5-5.1); TOTAL BILIRUBIN 0.4 mg/dL (0.2-1.0); TOTAL PROTEIN 7.6 g/dL (6.4-8.2)
[2021-03-24 02:09] LABS: HEMOGLOBIN A1C 6.2 % (4.8-5.6)
== END ==
LOC: LAB 10:41
PROVIDERS: ATTEND Family Medicine
DX: M25.561 Pain in right knee (principal)
CPT/HCPCS: 36415; 80053; 80061; 83036; 83735

== ENCOUNTER → 2021-03-23 | Outpatient (CLI) | payer MEDICARE ==
[2021-03-23 12:21] LABS: CALCIUM 8.3 mg/dL (8.5-10.1); CREATININE 1.4 mg/dL (0.7-1.3); GFR 60.8; POTASSIUM 3.9 mmol/L (3.5-5.1)
== END ==
LOC: LAB 10:47
PROVIDERS: ATTEND Internal Medicine Interventional Cardiology
DX: I10 Essential (primary) hypertension (principal)
CPT/HCPCS: 36415; 80048

== ENCOUNTER → 2021-03-23 | Outpatient (CLI) | payer MEDICARE ==
[2021-03-23 12:10] LABS: BASO % 0 % (0-3); EOS # 0.2 x10^3/uL (0.0-0.7); EOS % 2 % (0-3); HEMATOCRIT 40.9 % (39.0-53.0); HEMOGLOBIN 13.4 g/dL (13.0-17.5); LYMPH # 2.6 x10^3/uL (1.0-4.8); LYMPH % 28 % (24-48); MEAN CORPUSCULAR HEMOGLOBIN 27 pg (25-35); MEAN CORPUSCULAR HGB CONC 33 g/dL (31-37); MEAN CORPUSCULAR VOLUME 81 fL (79-100); MONO # 0.6 x10^3/uL (0.0-1.1); MONO % 7 % (0-9); NEUT # 5.9 x10^3uL (1.8-7.7); NEUT % 63 % (31-73); PLATELET COUNT 119 x10^3/uL (140-400); RED BLOOD COUNT 5.04 x10^6/uL (4.30-5.70); WHITE BLOOD COUNT 9.3 x10^3/uL (4.0-11.0)
[2021-03-23 13:53] LABS: SEDIMENTATION RATE 18 (0-15)
[2021-03-23 14:01] LABS: ALK PHOS 89 U/L (46-116); ALT (SGPT) 41 U/L (16-63); ANION GAP 12 (6-14); AST (SGOT) 28 U/L (15-37); BLOOD UREA NITROGEN 20 mg/dL (8-26); BUN/CREATININE RATIO 14 (6-20); CALCIUM 8.2 mg/dL (8.5-10.1); CARBON DIOXIDE 24 mmol/L (21-32); CHLORIDE 109 mmol/L (98-107); CREATININE 1.4 mg/dL (0.7-1.3); GFR 60.8; GLUCOSE 144 mg/dL (70-99); POTASSIUM 3.9 mmol/L (3.5-5.1); SODIUM 145 mmol/L (136-145); TOTAL BILIRUBIN 0.4 mg/dL (0.2-1.0)
[2021-03-23 14:32] LABS: ALBUMIN 3.8 g/dL (3.4-5.0); TOTAL PROTEIN 7.6 g/dL (6.4-8.2)
[2021-03-23 14:35] LABS: C REACTIVE PROTEIN < 0.5 mg/L (0-3.3)
== END ==
LOC: LAB 11:14
PROVIDERS: ATTEND Internal Medicine Rheumatology
DX: M15.9 Polyosteoarthritis, unspecified (principal)
CPT/HCPCS: 36415; 80053; 85025; 85651; 86140

== ENCOUNTER → 2021-04-21 | Outpatient (CLI) | payer MEDICARE ==
[2021-04-21 10:14] LABS: ALBUMIN 3.7 g/dL (3.4-5.0); ALBUMIN/GLOBULIN RATIO 0.9 (1.0-1.7); CALCIUM 8.8 mg/dL (8.5-10.1); CREATININE 1.3 mg/dL (0.7-1.3); GFR 66.2; POTASSIUM 4.1 mmol/L (3.5-5.1); TOTAL BILIRUBIN 0.4 mg/dL (0.2-1.0); TOTAL PROTEIN 7.7 g/dL (6.4-8.2)
== END ==
LOC: LAB 09:08
PROVIDERS: ATTEND Internal Medicine Interventional Cardiology
DX: I50.30 Unspecified diastolic (congestive) heart failure (principal)
CPT/HCPCS: 36415; 80053; 80061

== ENCOUNTER → 2021-09-07 | Outpatient (CLI) | payer MEDICARE ==
[2021-09-07 12:29] LABS: BASO % 0 % (0-3); EOS # 0.1 x10^3/uL (0.0-0.7); EOS % 1 % (0-3); HEMATOCRIT 39.3 % (39.0-53.0); HEMOGLOBIN 12.7 g/dL (13.0-17.5); LYMPH # 3.1 x10^3/uL (1.0-4.8); LYMPH % 23 % (24-48); MEAN CORPUSCULAR HEMOGLOBIN 26 pg (25-35); MEAN CORPUSCULAR HGB CONC 32 g/dL (31-37); MEAN CORPUSCULAR VOLUME 80 fL (79-100); MONO % 8 % (0-9); NEUT # 9.2 x10^3uL (1.8-7.7); NEUT % 69 % (31-73); PLATELET COUNT 213 x10^3/uL (140-400); RED BLOOD COUNT 4.91 x10^6/uL (4.30-5.70); RED CELL DISTRIBUTION WIDTH 17.3 % (11.5-14.5); WHITE BLOOD COUNT 13.5 x10^3/uL (4.0-11.0)
[2021-09-07 12:41] LABS: ALBUMIN 3.2 g/dL (3.4-5.0); ALBUMIN/GLOBULIN RATIO 0.8 (1.0-1.7); C REACTIVE PROTEIN 46.1 mg/L (0-3.3); CALCIUM 8.6 mg/dL (8.5-10.1); CREATININE 1.2 mg/dL (0.7-1.3); GFR 72.4; POTASSIUM 3.8 mmol/L (3.5-5.1); TOTAL BILIRUBIN 0.3 mg/dL (0.2-1.0); TOTAL PROTEIN 7.4 g/dL (6.4-8.2)
[2021-09-07 14:28] LABS: SEDIMENTATION RATE 32 (0-15)
== END ==
LOC: LAB 11:25
PROVIDERS: ATTEND Internal Medicine Rheumatology
DX: M15.9 Polyosteoarthritis, unspecified (principal); M07.69 Enteropathic arthropathies, multiple sites; Z79.899 Other long term (current) drug therapy
CPT/HCPCS: 36415; 80053; 85025; 85651; 86140

== ENCOUNTER → 2021-09-07 | Outpatient (CLI) | payer MEDICARE | LOC: LAB 11:31 | PROVIDERS: ATTEND Family Medicine | DX: Z79.01 Long term (current) use of anticoagulants (principal) | CPT/HCPCS: 36415; 85610 ==

== ENCOUNTER → 2022-01-31 | Outpatient (CLI) | payer MEDICARE ==
--- NOTE | 2022-02-01 12:08 | RAD ---
EXAMINATION: XR EXAM OF ANKLE_RIGHT 3VIEWS CLINICAL HISTORY: Chronic right ankle pain, x 3 months, stands for long hours. TECHNIQUE: XR EXAM OF ANKLE_RIGHT 3VIEWS Number of Images/Views: 3 COMPARISON: None FINDINGS: Joint spaces and alignment relatively well-maintained and the ankle. Midfoot degenerative changes, in completely evaluated. Pes planus. No acute fracture. Small plantar calcaneal enthesophyte. Dystrophic calcification along the Achilles insertion, compatible with chronic tendinosis. Diffuse soft tissue swelling. Vascular and soft tissue calcifications. IMPRESSION: No acute osseous abnormality. Pes planus and degenerative changes in the foot, incompletely evaluated. Electronically signed by: Ash Greenwood DO (02/01/2022 12:05 PM) [id number]
== END ==
LOC: PMG 18:05
PROVIDERS: ATTEND Nurse Practitioner Family
DX: M19.071 Primary osteoarthritis, right ankle and foot (principal); M21.41 Flat foot [pes planus] (acquired), right foot; M79.89 Other specified soft tissue disorders
CPT/HCPCS: 73610

== ENCOUNTER 2022-02-27 14:42 | Emergency (ER) | payer MEDICARE ==
[~2022-02-27] VITALS: Ht 182.9 cm; Wt 118.6 kg
[2022-02-27 14:59] VITALS: BP 139/58
[2022-02-27] MEDS ORDERED: KETOROLAC 15 MG/ML VIAL. IVP ONE (16:00)
--- NOTE | 2022-02-27 16:16 | PHYS DOC ---
Past History Past Medical History: Arthritis, Cancer, Diverticulitis, High Cholesterol, Hypotension Additional Past Medical Histor: ABD AORTIC ANEURYSM (HEBERT MARTINEZ APRN) Past Surgical History: Tonsillectomy, Other Additional Past Surgical Histo: AORTIC STENT (HEBERT MARTINEZ APRN) Alcohol Use: Occasionally Drug Use: None (HEBERT MARTINEZ APRN) General Adult EDM: Chief Complaint: ABDOMINAL PAIN HPI: HPI: Patient is a 71-year-old male presents with left lower quadrant pain and left flank pain. Patient states that pain started last night. Patient is also reporting trouble urinating. Denies taking anything for pain at home. Denies fever, vomiting, diarrhea. Patient has history of prostate cancer, hypertension, diabetes (HEBERT MARTINEZ APRN) Review of Systems: Review of Systems: ROS At least 10 ROS systems have been reviewed and are negative except as documented in the HPI. General: Negative except as outlined in HPI above. Skin: Negative except as outlined in HPI above. HEENT: Negative except as outlined in HPI above. Neck: Negative except as outlined in HPI above. Respiratory: Negative except as outlined in HPI above.. Cardiovascular: Negative except as outlined in HPI above. Abdomen: Negative except as outlined in HPI above. : Negative except as outlined in HPI above. Back/MSK: Negative except as outlined in HPI above. Neuro: Negative except as outlined in HPI above. Psych: Negative except as outlined in HPI above. (HEBERT MARTINEZ APRN) Current Medications: Current Meds: Current Medications Medications (Trade) Dose Ordered Sig/Concetta Start Time Stop Time Status Last Admin Dose Admin Ketorolac Tromethamine (Toradol 15mg Vial) 15 mg 1X ONCE 02/27/22 16:00 02/27/22 16:01 UNV (HEBERT MARTINEZ MAIL CLERK BILLS) Allergies: Allergies: Allergies Coded Allergies Type Severity Reaction Last Updated Verified Penicillins Allergy Unknown 06/28/20 No levofloxacin Allergy Unknown 06/28/20 No (HEBERT MARTINEZ APRN) Physical Exam: PE: Constitutional: Well developed, well nourished, no acute distress, non-toxic appearance. [] HENT: Normocephalic, atraumatic, bilateral external ears normal, oropharynx moist, no oral exudates, nose normal. [] Eyes: PERRLA, EOMI, conjunctiva normal, no discharge. [] Neck: Normal range of motion, no tenderness, supple, no stridor. [] Cardiovascular:Heart rate regular rhythm, no murmur [] Lungs & Thorax: Bilateral breath sounds clear to auscultation [] Abdomen: Bowel sounds normal, soft, left lower quadrant tenderness Skin: Warm, dry, no erythema, no rash. [] Back: No tenderness, left CVA tenderness. [] Extremities: No tenderness, no cyanosis, no clubbing, ROM intact, no edema. [] Neurologic: Alert and oriented X 3, normal motor function, normal sensory function, no focal deficits noted. [] Psychologic: Affect normal, judgement normal, mood normal. [] (HEBERT MARTINEZ APRN) Current Patient Data: Vital Signs: Vital Signs Date Time Temp Pulse Resp B/P (MAP) Pulse Ox O2 Delivery O2 Flow Rate FiO2 02/27/22 14:59 99.3 99 18 139/58 (85) 97 Room Air (HEBERT MARTINEZ APRN) EKG: EKG: [] (HEBERT MARTINEZ APRN) Radiology/Procedures: Radiology/Procedures: []CT abdomen pelvis without contrast dated 02/27/2022. COMPARISON: 08/08/2018. INDICATION: Left lower quadrant pain. TECHNIQUE: Contiguous axial imaging the abdomen pelvis performed without the administration of IV or oral contrast. One or more of the following individualized dose reduction techniques were utilized for this examination: 1. Automated exposure control 2. Adjustment of the mA and/or kV according to patient size 3. Use of iterative reconstruction technique. FINDINGS: There is inflammatory stranding in the left perinephric fat, new from prior study. No calcific stone within the substance of the left kidney. No calculus along the course of the left ureter. No significant hydronephrosis. The right kidney is unremarkable. There has been stent graft repair of distal thoracic and upper abdominal aortic aneurysm, unchanged. The aneurysm sac at the distal descending aorta has somewhat decreased in size, however is not completely included on the study. The aneurysm near the diaphragmatic hiatus measures about 6.5 cm maximum dimension versus 6.7 cm previously. There is a small intimal flap throughout the abdominal aorta and left common iliac, not well evaluated in the absence of contrast material but likely unchanged. Ectasia of the infrarenal abdominal aorta and measuring up to 4 cm transverse, stable. There is also aneurysmal dilation of the left common iliac measuring 2.3 cm maximum transverse dimension, unchanged. No periaortic fluid collection. Liver and spleen are homogeneous. Layering hyperdensity in the gallbladder lumen consistent with sludge and/or small stones. Pancreas and adrenal glands are unremarkable. GI tract normal in caliber and contour. No bowel wall thickening. Scattered diverticula throughout the colon. The appendix is normal in caliber. No ascites. There are nonpathologic enlarged retroperitoneal lymph nodes, nonspecific. Images of pelvis show nondistended urinary bladder. There is diffuse bladder wall thickening. Prostate gland is upper limits of normal in size. There prostate fiducial markers in place. No free fluid or lymphadenopathy. Prominent umbilical hernia containing only fat. Images of the lung bases are clear. Heart size is within normal limits. No pleural or pericardial effusion. Bone window show no acute finding. Multilevel spondylosis. IMPRESSION: 1. There is inflammatory stranding in the left perinephric fat and along the proximal aspect of the left ureter without evidence of obstructing stone or hydronephrosis. This is of uncertain etiology and could be related to pyelonephritis. Correlate with urinalysis. 2. 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 3. Cholelithiasis and/or gallbladder sludge. 4. Diverticulosis with no evidence of acute diverticulitis. 5. Normal appendix. 6. Small umbilical hernia containing only fat. Electronically signed by: Brijesh Collado MD (02/27/2022 4:38 PM) [facility] (HEBERT MARTINEZ APRN) Heart Score: C/O Chest Pain: No Risk Factors: Risk Factors: DM, Current or recent (<one month) smoker, HTN, HLP, family history of CAD, obesity. Risk Scores: Score 0 - 3: 2.5% MACE over next 6 weeks - Discharge Home Score 4 - 6: 20.3% MACE over next 6 weeks - Admit for Clinical Observation Score 7 - 10: 72.7% MACE over next 6 weeks - Early Invasive Strategies (HEBERT MARTINEZ APRN) Course & Med Decision Making: Course & Med Decision Making Pertinent Labs and Imaging studies reviewed. (See chart for details) [] 8-year-old male presents with left lower quadrant pain and left flank pain. Patient is also reporting hematuria. Work-up in ER consist of CBC, CMP, urinalysis. CT abdomen and pelvis. WBCs, 17.2. All other labs unremarkable. UA shows greater than 40 RBCs, greater than 40 WBCs, large blood, small leuks. CT abdomen pelvis is suspicious for pyelonephritis. Patient given Rocephin. Will be sending patient home with antibiotic to treat. Patient has no history of antibiotic resistance when treating UTIs. Patient is alert and oriented and reliable. Denies fever and chills. Discussed all results with patient. Patient is able to be admitted to home and will be taking his antibiotics as directed. (HEBERT MARTINEZ APRN) Dragon Disclaimer: Dragon Disclaimer: This electronic medical record was generated, in whole or in part, using a voice recognition dictation system. (HEBERT MARTINEZ APRN) Attending Co-Sign The patient was seen and interviewed as well as examined at the bedside. The chart was reviewed. The case was discussed. Agree with the plan of care. (MIGUEL AVILES DO) Departure Departure: Impression: Primary Impression: Pyelonephritis Disposition: 01 HOME / SELF CARE / HOMELESS Condition: STABLE Referrals: AIDE PORTILLO MD (PCP) Patient Instructions: Pyelonephritis, Adult, [id number] Additional Instructions: You were seen in the emergency room for abdominal pain. Your CT abdomen pelvis suspicious for pyelonephritis. Your urine was positive for infection and blood. I am starting you on antibiotics. Make sure you take antibiotics in full and as directed. Please return to emergency room if you have worsening symptoms or concerns such as running fevers, vomiting, pain not improving. EMERGENCY DEPARTMENT GENERAL DISCHARGE INSTRUCTIONS Thank you for coming to [facility] (ED) today and trusting us with you care. We trust that you had a positivie experience in our Emergency Department. If you wish to speak to the department management, you may call the director at [phone]. YOUR FOLLOW UP INSTRUCTIONS ARE FOLLOWS: 1. Do you have a private Doctor? If you do not have a private doctor, please ask for a resource list of physicians or clinics that may be able to assist you with follow up care. 2. The Emergency Physician has interpreted your x-rays. The X-Ray specialist will also review them. If there is a change in the findings, you will be notified in 48 hours when at all possible. 3. A lab test or culture has been done, your results will be reviewed and you will be notified if you need a change in treatment. ADDITIONAL INSTRUCTIONS AND INFORMATION: 1. Your care today has been supervised by a physician who is specially trained in emergency care. Many problems require more than one evaluation for a complete diagnosis and treatment. We recommend that you schedule your follow up appointment as recommended to ensure complete treatment of you illness or injury. If you are unable to obtain follow up care and continue to have a problem, or if your condition worsens, we recommend that you return to the ED. 2. We are not able to safely determine your condition over the phone nor are we able to give sound medical advice over the phone. For these safety reasons, if you call for medical advice we will ask you to come to the ED for further evaluation. 3. If you have any questions regarding these discharge instructions please call the ED at [phone]. SAFETY INFORMATION: In the interest of safety, wellness, and injury prevention; we encourage you to wear your sealbelt, if you smoke; quite smoking, and we encourage family to use a protective helmet for bicycling and other sporting events that present an increased risk for head injury. IF YOUR SYMPTOMS WORSEN OR NEW SYMPTOMS DEVELOP, OR YOU HAVE CONCERNS ABOUT YOUR CONDITION; OR IF YOUR CONDITION WORSENS WHILE YOU ARE WAITING FOR YOUR FOLLOW UP APPOINTMENT; EITHER CONTACT YOUR PRIMARY CARE DOCTOR, THE PHYSICIAN WHOSE NAME AND NUMBER YOU WERE GIVEN, OR RETURN TO THE ED IMMEDIATELY. Scripts Cephalexin (CEPHALEXIN) 500 Mg Tablet 1 TAB PO BID for uti for 7 Days, #14 TAB Prov: HEBERT MARTINEZ APRN 02/27/22 HEBERT MARTINEZ APRN February 27, 2022 16:16 MIGUEL AVILES DO March 01, 2022 20:49
[2022-02-27 16:22] LABS: BASO % 0 % (0-3); EOS % 0 % (0-3); HEMOGLOBIN 13.1 g/dL (13.0-17.5); LYMPH % 11 % (24-48); MEAN CORPUSCULAR HEMOGLOBIN 26 pg (25-35); MEAN CORPUSCULAR HGB CONC 33 g/dL (31-37); MEAN CORPUSCULAR VOLUME 79 fL (79-100); MONO % 10 % (0-9); NEUT % 79 % (31-73); PLATELET COUNT 139 x10^3/uL (140-400); RED BLOOD COUNT 5.04 x10^6/uL (4.30-5.70); RED CELL DISTRIBUTION WIDTH 17.6 % (11.5-14.5); WHITE BLOOD COUNT 17.2 x10^3/uL (4.0-11.0)
[2022-02-27 16:23] LABS: LYMPH # 1.9 x10^3/uL (1.0-4.8); MONO # 1.7 x10^3/uL (0.0-1.1); NEUT # 13.5 x10^3uL (1.8-7.7)
[2022-02-27 16:27] LABS: CALCIUM 8.5 mg/dL (8.5-10.1); CREATININE 1.3 mg/dL (0.7-1.3); POTASSIUM 4.2 mmol/L (3.5-5.1)
[2022-02-27 16:33] LABS: ALBUMIN 3.4 g/dL (3.4-5.0); TOTAL BILIRUBIN 1.1 mg/dL (0.2-1.0); TOTAL PROTEIN 6.8 g/dL (6.4-8.2)
--- NOTE | 2022-02-27 16:41 | RAD ---
CT abdomen pelvis without contrast dated 02/27/2022. COMPARISON: 08/08/2018. INDICATION: Left lower quadrant pain. TECHNIQUE: Contiguous axial imaging the abdomen pelvis performed without the administration of IV or oral contra st. One or more of the following individualized dose reduction techniques were utilized for this examinat ion: 1. Automated exposure control 2. Adjustment of the mA and/or kV according to patient size 3. Use of iterative reconstruction technique. FINDINGS: There is inflammatory stranding in the left perinephric fat, new from prior study. No calcific stone within the substance of the left kidney. No calculus along the course of the left ureter. No signific ant hydronephrosis. The right kidney is unremarkable. There has been stent graft repair of distal thoracic and upper abdominal aortic aneurysm, unchanged. The aneurysm sac at the distal descending aorta has somewhat decreased in size, however is not comple tely included on the study. The aneurysm near the diaphragmatic hiatus measures about 6.5 cm maximum dimension versus 6.7 cm previously. There is a small intimal flap throughout the abdominal aorta and left common iliac, not well evaluated in the absence of contrast material but likely unchanged. Ectas ia of the infrarenal abdominal aorta and measuring up to 4 cm transverse, stable. There is also aneur ysmal dilation of the left common iliac measuring 2.3 cm maximum transverse dimension, unchanged. No periaortic fluid collection. Liver and spleen are homogeneous. Layering hyperdensity in the gallbladder lumen consistent with slud ge and/or small stones. Pancreas and adrenal glands are unremarkable. GI tract normal in caliber and contour. No bowel wall thickening. Scattered diverticula throughout th e colon. The appendix is normal in caliber. No ascites. There are nonpathologic enlarged retroperiton eal lymph nodes, nonspecific. Images of pelvis show nondistended urinary bladder. There is diffuse bladder wall thickening. Prostat e gland is upper limits of normal in size. There prostate fiducial markers in place. No free fluid or lymphadenopathy. Prominent umbilical hernia containing only fat. Images of the lung bases are clear. Heart size is within normal limits. No pleural or pericardial eff usion. Bone window show no acute finding. Multilevel spondylosis. IMPRESSION: 1. There is inflammatory stranding in the left perinephric fat and along the proximal aspect of the l eft ureter without evidence of obstructing stone or hydronephrosis. This is of uncertain etiology and could be related to pyelonephritis. Correlate with urinalysis. 2. 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 3. Cholelithiasis and/or gallbladder sludge. 4. Diverticulosis with no evidence of acute diverticulitis. 5. Normal appendix. 6. Small umbilical hernia containing only fat. Electronically signed by: Brijesh Collado MD (02/27/2022 4:38 PM) PHAN
--- NOTE | 2022-02-27 16:45 | EKG ---
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
[2022-02-27 18:13] LABS: CLARITY,URINE HAZY; COLOR,URINE YELLOW
[2022-02-27 18:14] LABS: BACTERIA,URINE FEW /HPF (0-FEW); GLUCOSE,URINE NEG (NEG); NITRITE,URINE NEG (NEG); RBC,URINE >40 /HPF (0-2); SQUAMOUS EPITHELIAL CELL,UR OCC /LPF; UROBILINOGEN,URINE 0.2 mg/dL (0.2 mg/dL); WBC,URINE >40 /HPF (0-4)
[2022-02-27] MEDS ORDERED: IV NORMAL SALINE 50ML 50 ML ONE (18:15)
[2022-02-27] MEDS ORDERED: cefTRIAXone SODIUM 1 GM VIAL ONE (18:15)
[2022-02-27] MEDS ORDERED: CEPH500T PO (18:48)
[2022-02-27 19:38] LABS: % LYMPHS 9 % (24-48); % MONOS 6 % (0-10); % SEGS 85 % (35-66); PLT ESTIMATE ADEQUATE (ADEQUATE); TOXIC VACUOLATION PRESENT
== END 2022-02-27 19:20 | disposition home or self-care (01) ==
LOC: ER 14:42
DX: N12 Tubulo-interstitial nephritis, not specified as acute or chronic (principal); M19.90 Unspecified osteoarthritis, unspecified site; E78.00 Pure hypercholesterolemia, unspecified; Z88.0 Allergy status to penicillin; Z88.1 Allergy status to other antibiotic agents
CPT/HCPCS: 36415; 74176; 80053; 81001; 83690; 85007; 85025; 87077; 87086; 87186; 93005; 96365; 96375; 99285; J0696; J1885